=== PATIENT | female | born 1990 | race Hispanic/Latino ===

== ENCOUNTER 2016-12-15 23:04 | Emergency (ER) | payer MEDICAID, OTHER ==
[~2016-12-15] VITALS: Ht 152.4 cm; Wt 55.5 kg
[~2016-12-15 23:04] MED LIST: AMIT10TA6 PO; CHOL500050 PO; FEXO-15 PO; MAGN250T PO; MELA1TAB10 PO
[2016-12-15 23:13] VITALS: BP 134/97; PULSE 83; RESP 18; O2SAT 98
--- NOTE | 2016-12-15 23:50 | ED.REPORT ---
HPI-Headache Date of Service December 15, 2016 ED Provider: Andrew Mcmahan DO Patient is a 26 year old female with a history of migraines who presents to the ED complaining of a migraine onset 3 days ago. Associated symptoms include nausea. She denies blacking out, vomiting, fever or numbness. Patient reports that normally her migraines gradually come on but this one happened rapidly. The patient states that the migraine is in the frontal and occipital region of her head. Nursing Notes Stated Complaint: HEADACHE Chief Complaint: Headache Nursing Notes Reviewed: Yes Allergies: Coded Allergies: Shellfish (Verified Allergy, Unknown, 12/15/16) acetaminophen (Verified Allergy, Unknown, 12/15/16) oxycodone (Verified Allergy, Unknown, 12/15/16) Scheduled Amitriptyline (Amitriptyline) 10 Mg Tablet 10 MG PO DAILY Cholecalciferol (Vitamin D3) (Vitamin D3) 50,000 Unit Capsule 50,000 UNIT PO DAILY Fexofenadine ([place] Ann Allergy) 60 Mg Tablet 60 MG PO DAILY Magnesium (Magnesium) 250 Mg Tablet 250 MG PO DAILY Melatonin (Melatonin 1 mg Tablet) 1 Each Tablet 1 MG PO PRN General Time Seen by MD: 23:50 Chief Complaint Migraine headache Hx Obtained From: Patient Arrived By: Walk-in Sudden in Onset?: Yes Onset Occurred: 3 days ago Symptom Duration: Since onset Location: : Frontal bilateral: Occipital bilateral Radiation: : Does not radiate Associated with: Reports: Nausea, Denies: Numbness, Vomiting Recent Healthcare: No recent doctor visit, No recent hospitalization Similar Sx Previous: Yes Past Medical History Past Medical History migraines Smoking History Unknown if Ever Smoker Social History Other Social History: Good social support Ambulatory Status Independent Review of Systems Constitutional: Denies: Fever GI: Reports: Nausea, Denies: Vomiting Neurologic: Reports: Headache, Denies: Change LOC, Numbness, Syncope Complete sys rev & neg: except as marked. Physical Exam Initial Vital Signs Vital Signs (First) Date Time Temp Pulse Resp B/P Pulse Ox O2 Delivery O2 Flow Rate FiO2 12/15/16 23:13 36.4 83 18 134/97 98 Room Air Initial VS: Reviewed General/Constitutional: Awake, Alert Head / Eyes: Atraumatic, PERRL, EOMI right pupil 4mm, left pupil 6mm Neck: Atraumatic, Supple, Full range of motion Neurologic: Oriented X3, Speech NL, No motor deficits, No sensory deficits Respiratory / Chest: Atraumatic, Breath sounds NL, Breath sounds = bilat, No respiratory distress Cardiovascular: Heart rate NL, Regular rhythm, Heart sounds NL Skin: Atraumatic, Color NL, No rash, Warm, Dry Psychiatric: Affect NL, Mood NL Upper Extremity / MS: Atraumatic, Full range of motion Lower Extremity / Pelvis / MS: Atraumatic, Full range of motion Interpretation & Diagnostics Lab Results Interpretation Result Diagram: 12/16/16 0015 12/16/16 0015 Test 12/16/16 00:15 White Blood Count 5.9th/mm3 (3.8-10.1) Red Blood Count 4.34mil/mm3 (3.90-5.20) Hemoglobin 13.2g/dL (12.0-15.6) Hematocrit 38.9% (35.0-46.0) Mean Corpuscular Volume 89.6fL (81-100) Mean Corpuscular Hemoglobin 30.4pg (27.0-35.0) Mean Corpuscular Hemoglobin Concent 33.9% (32.0-37.0) Red Cell Distribution Width 13.6% (12.3-15.4) Platelet Count 280bil/L (150-400) Neutrophils (%) (Auto) 48.3% (40-74) Lymphocytes (%) (Auto) 41.1% (14-46) Monocytes (%) (Auto) 7.0% (4-12) Eosinophils (%) (Auto) 2.9% (0-5) Basophils (%) (Auto) 0.5% (0-3) Sodium Level 139mEq/L (134-144) Potassium Level 3.7mEq/L (3.5-5.2) Chloride Level 101mEq/L (97-108) Carbon Dioxide Level 24mmol/L (18-29) Blood Urea Nitrogen 9mg/dL (6-20) Creatinine 0.67mg/dL (0.57-1.00) Estimat Glomerular Filtration Rate 154mL/min (>59) Glucose Level 87mg/dL (60-99) Calcium Level 9.1mg/dL (8.5-10.1) Total Bilirubin 0.6mg/dL (0.0-1.2) Aspartate Amino Transf (AST/SGOT) 10U/L (0-50) Alanine Aminotransferase (ALT/SGPT) 12U/L (0-32) Alkaline Phosphatase 36U/L (25-150) Total Protein 7.6g/dL (6.4-8.4) Albumin 4.2g/dL (3.4-5.0) Human Chorionic Gonadotropin, Qual <0.500 (Negative) Hold Gonsales Top Tube Received (Received) CT Head Interpretation CONCLUSION: No acute intracranial findings. at 0043 Re-Eval/Medical Decision Med Decision/Clinical Course Head CT was normal. Patient declined a lumbar puncture I explained age and her mother that CT scan can miss anywhere from 1-15% of subarachnoid hemorrhages depending on the study read. CT scan cannot diagnose meningitis. Lumbar puncture was discussed and recommended. They both decided that she did not want to undergo this procedure. They did assure me that they would return. They were informed that these could be life-threatening illnesses and if she has any problems she is to return right away. Re-Evaluation/Progress : Time of Eval: 00:58 Re-Evaluation/Progress Note: Discussed results and plan for discharge. The patient understands and agrees to the plan for discharge. All questions were addressed. Counseled Regarding: Diagnosis, Lab results, Need for follow-up, When/why to return to ED Discharge & Departure Impression: Primary Impression: Migraine Migraine type: without aura Status migrainosus presence: without status migrainosus Intractability: intractable Qualified Code: G43.019 - Migraine without aura, intractable, without status migrainosus Disposition: Home Discharge Condition All VS Reviewed: Yes Condition: Stable Patient Instructions: Migraine Headache (ED) Additional Instructions: Your head CT was normal. Follow up with Dr. Jimenze. Call tomorrow to set up an appointment. As we discussed, a lumbar puncture is required to rule out a subarachnoid hemorrhage or meningitis. Do not drive tonight, as you were given sedating medication. Return to the emergency department if you develop any new or worsening symptoms including numbness, increasing pain or a stiff neck. Referrals: Gavino Davis MD (PCP) Tatum Jimenez MD Scribe Attestation Portions of this note were transcribed by Magnolia Burnett. I, Dr. Mcmahan personally performed the history, physical exam and medical decision-making; I reviewed and confirmed the accuracy of the information in the transcribed note. Signed by: Candice Locke, 12/16/16 and 0100 copies to: Gavino Davis MD; Tatum Jimenez MD, Todd P DO December 15, 2016 23:50 Thao Burnett December 16, 2016 00:29
[2016-12-16] MEDS ORDERED: Haloperidol 5 mg/mL Inj IV ONE (00:05)
[2016-12-16] MEDS ORDERED: Ondansetron 2 mg/mL 2 mL Inj IVPUSH PRN (00:05)
[2016-12-16] MEDS ORDERED: 0.9% Sodium Chloride 1,000 ML IV ONE (00:05)
[2016-12-16 00:31] LABS: BASOPHILS % (AUTO) 0.5 % (0-3); EOSINOPHILS % (AUTO) 2.9 % (0-5); Mean Corpuscular Hemoglobin 30.4 pg (27.0-35.0); Mean Corpuscular Volume 89.6 fL (81-100); NEUTROPHILS % (AUTO) 48.3 % (40-74); Platelet Count 280 bil/L (150-400)
[2016-12-16 01:28] VITALS: BP 104/64; PULSE 71; RESP 16; O2SAT 100
--- NOTE | 2016-12-16 07:33 | DRSVH ---
PROCEDURE: CT BRAIN WITHOUT CONTRAST ([id number]) INDICATIONS: headache TECHNIQUE: Noncontrast 4.5 mm thick angled axial sections acquired from the foramen magnum to the vertex, with c oronal reformats. COMPARISON: None. FINDINGS: Image quality: Excellent. CSF spaces: Basal cisterns are patent. No extra-axial fluid collections. Ventricles are normal in size and shape. Brain: No midline shift. No intracranial masses or hemorrhage. Quach-white matter interface is norm al. Skull and face: Calvarium and visualized facial bones are intact, without suspicious lesions. Sinuses: Visualized sinuses and mastoids are clear. IMPRESSION: 1. Normal head CT. 2. There are no discrepancies with the pulmonary report. Dictated by: Justo Mcallister M.D. on 12/16/2016 at 7:24 Approved by: Justo Mcallister M.D. on 12/16/2016 at 7:26
== END 2016-12-16 01:30 | disposition home or self-care (01) ==
LOC: SED 23:04
DX: G43.019 Migraine without aura, intractable, without status migrainosus (principal); R11.0 Nausea; Z91.013 Allergy to seafood; Z88.6 Allergy status to analgesic agent; Z88.5 Allergy status to narcotic agent
CPT/HCPCS: 36415; 70450; 80053; 84703; 85025; 96361; 96374; 96375; 99285; J1200; J1630; J1885; J2405; J7030